=== PATIENT | male | born 1975 | race Caucasian/White ===

== ENCOUNTER 2018-10-10 16:22 | Emergency (ER) | payer MEDICAID, OTHER ==
[~2018-10-10] VITALS: Ht 162.6 cm; Wt 82.7 kg
[~2018-10-10 16:22] MED LIST: ATOR20TA40 PO; COZ50 PO; ESCI20TA PO; METF1000 PO; TRAZ-343 PO
[2018-10-10 16:38] VITALS: BP 140/93
--- NOTE | 2018-10-10 16:44 | NUR ---
PT AMBULATED TO LOBBY AT THIS TIME.
--- NOTE | 2018-10-10 16:53 | NUR ---
CALLED KATTY GILLESPIE AT [phone], SPOKE WITH KATHY, SHE STATED SHE WOULD GET AN OFFICER TO THE ER.
--- NOTE | 2018-10-10 17:09 | NUR ---
PATIENT AMBULATED TO BED 9 AT THIS TIME.
--- NOTE | 2018-10-10 17:15 | NUR ---
C/O CONTUSION TO L SIDE OF HEAD, BRUISING/SWELLING NOTED TO L EYE. PT DENIES LOC/N/V. PT IS ALERT AND IS ANSWERING QUESTIONS WITH SHORT, 1-2 WORD PHRASES. CAREGIVER AT BEDSIDE.
--- NOTE | 2018-10-10 17:35 | NUR ---
[facility] [facility] AT BEDSIDE
--- NOTE | 2018-10-10 18:35 | NUR ---
pt returned from ct
[2018-10-10 19:10] VITALS: BP 135/90
--- NOTE | 2018-10-10 19:12 | NUR ---
Patient discharged with v/s stable. Written and verbal after care instructions given and explained. Patient alert, oriented and verbalized understanding of instructions. Ambulatory with steady gait. All questions addressed prior to discharge. ID band removed. Patient advised to follow up with PMD. Patient educated on indication of medication including possible reaction and side effects. Opportunity to ask questions provided and answered.
== END 2018-10-10 19:12 | disposition home or self-care (01) ==
LOC: MED 16:22
DX: S05.92XA Unspecified injury of left eye and orbit, initial encounter (principal); E11.9 Type 2 diabetes mellitus without complications; Z79.84 Long term (current) use of oral hypoglycemic drugs; Z79.899 Other long term (current) drug therapy; Y04.0XXA Assault by unarmed brawl or fight, initial encounter; Y93.89 Activity, other specified; Y92.099 Unspecified place in other non-institutional residence as the place of occurrence of the external cause; Y99.8 Other external cause status
CPT/HCPCS: 70450; 99284

== ENCOUNTER 2019-01-06 18:12 | Emergency (ER) | payer OTHER ==
[~2019-01-06] VITALS: Ht 160 cm; Wt 78.5 kg
[2019-01-06 18:51] VITALS: BP 129/82
--- NOTE | 2019-01-06 18:53 | NUR ---
PT AMBULATED TO LOBBY AT THIS TIME, VSS.
--- NOTE | 2019-01-06 20:04 | NUR ---
PT TAKEN TO BED 6
--- NOTE | 2019-01-06 20:35 | NUR ---
43 Y/O M, BIB CARE PROVIDER TAMIKO TO ED C/O LT GREAT TOE PAIN X2 DAYS 5/10 ON PAIN SCALE. PT WAS AT ED EARLIER THIS WEEK PARTS OF TOENAIL REMOVED, NO ACTIVE BLEEDING NOTED, REMAINDER OF TOE YELLOW, WITH REDNESS AROUND BASE OF NAIL, NO SWELLING NOTED, PT ABLE TO MOVE TOES, PEDAL PULSE PRESENT, ED MD DR. SHELLEY MADE AWARE, WILL CONTINUE TO MONITOR CLOSELY, BED LOCKED IN LOWEST POSITION, WITH SIDERAIL UP.
--- NOTE | 2019-01-06 20:36 | NUR ---
Dr. Tobin examining patient.
[2019-01-06] MEDS ORDERED: NEOMYCIN/POLYMYXIN/BACITRACIN 0.9 GM/1 PKT TP ONE (20:55)
[2019-01-06 21:07] VITALS: BP 132/78
--- NOTE | 2019-01-06 21:07 | NUR ---
Patient discharged with v/s stable. Written and verbal after care instructions given and explained to patient and care provider Cathryn. Patient alert, oriented and verbalized understanding of instructions. Ambulatory with steady gait. All questions addressed prior to discharge. ID band removed. Patient advised to follow up with PMD. Rx of BACTRIM DS 800-160MG AND MOTRIN 800MG given. Patient educated on indication of medication including possible reaction and side effects. RETURN TO WORK NOTE ALSO PROVIDED. Opportunity to ask questions provided and answered.
== END 2019-01-06 21:07 | disposition home or self-care (01) ==
LOC: MED 18:12
DX: S91.202A Unspecified open wound of left great toe with damage to nail, initial encounter (principal); E11.9 Type 2 diabetes mellitus without complications; Z79.84 Long term (current) use of oral hypoglycemic drugs; Z79.899 Other long term (current) drug therapy; X58.XXXA Exposure to other specified factors, initial encounter; Y93.89 Activity, other specified; Y92.89 Other specified places as the place of occurrence of the external cause; Y99.8 Other external cause status
CPT/HCPCS: 11730; 73660; 99283; Q0092

== ENCOUNTER 2020-02-03 05:35 | Emergency (ER) | payer OTHER, MEDICAID ==
[~2020-02-03] VITALS: Ht 165.1 cm; Wt 76.7 kg
[~2020-02-03 05:35] MED LIST changes: -COZ50 PO; +LOSA50TA57 PO
[2020-02-03 05:44] VITALS: BP 127/87
--- NOTE | 2020-02-03 06:00 | NUR ---
44 Y/O MALE C/O SORE THORAT X2 WEEKS. PT HAS MILD RETARDATION AND ANSWERS NO TO SYMPTOMS BUT SLING OPERATOR WANTED TO GET THE PT EXAMINED. PT HAS DRY COUGH. DENIES PAIN. SLING OPERATOR STATES "HIS VOICE IS DEEPER AND DOES NOT NORMALLY TALK LIKE THIS" MED HX: MILD RETARDATION, DM2, HYPERLIPDEMIA, HTN, DEPRESSION MED ALLERGIES:UNOBTAINABLE
--- NOTE | 2020-02-03 06:20 | NUR ---
STREP THROAT SWABS DONE AND SENT TO LAB
[2020-02-03] MEDS ORDERED: PENICILLIN G BENZATHINE L-A 1.2 MU/2 ML SYR IM ONE (06:40)
[2020-02-03] MEDS ORDERED: DEXAMETHASONE 4 MG/ML VIAL IM ONE (06:40)
[2020-02-03 07:10] VITALS: BP 127/87
--- NOTE | 2020-02-03 07:10 | NUR ---
Patient discharged with v/s stable. Written and verbal after care instructions given and explained. Patient verbalized understanding. Ambulatory with steady gait. ID Band Removed. All questions addressed prior to discharge. Advised to follow up with PMD.
== END 2020-02-03 07:10 | disposition home or self-care (01) ==
LOC: MED 05:35
DX: J02.9 Acute pharyngitis, unspecified (principal); E11.9 Type 2 diabetes mellitus without complications; Z79.899 Other long term (current) drug therapy
CPT/HCPCS: 87081; 96372; 99284; J0561; J1100